=== PATIENT | male | born 1975 | race Caucasian/White ===

== ENCOUNTER 2025-04-23 15:34 | Outpatient (AMB) | payer OTHER, SELFPAY ==
--- NOTE | 2025-04-23 15:46 | A.OFFVIS_ITS ---
Intake Visit Reasons: 6 months follow up Allergies No Known Allergies Allergy (Verified 04/23/25 15:49) Medication List - Last Reconciled 04/23/25 by Em Reyes CNP pantoprazole mg PO propranolol 20 mg PO DAILY 90 days simvastatin 10 mg PO BEDTIME sumatriptan succinate 50 mg PO DAILY PRN HPI Comments Details: 49-year-old man with migraine. He was doing okay. He was getting few headaches a month. He noticed headaches happened more often on the weekend after sleeping in. Sumatriptan as needed helped, but made him feel groggy and he would lay down after taking medication. Sleep was up and down, depending on work schedule. [facility] Medical History (Updated 04/23/25 @ 15:48 by Em Reyes CNP) Migraine Family History (Updated 04/23/25 @ 15:49 by Em Reyes CNP) Mother Gaines gaines disease Review of Systems Const Denies chills, Denies daytime sleepiness, Reports difficulty sleeping, Denies fatigue, Denies fever(s), Denies frequent falls, Reports headache(s), Denies increased appetite, Denies poor appetite, Denies snoring, Denies weakness, Denies weight gain and Denies weight loss Eyes Denies loss of vision ENT Denies vertigo, Denies dizziness and Reports headache(s) Card Denies chest pain at rest, Denies chest pain with activity, Denies syncope, Denies leg edema and Denies palpitations Resp Denies snoring GI Denies constipation, Denies heartburn, Denies diarrhea and Denies nausea Denies urinary frequency, Denies urinary incontinence and Denies urinary urgency Musc Denies abnormal gait, Denies numbness and Denies tingling Skin/Breast Denies dry skin and Denies rash Neuro Denies abnormal gait, Denies vertigo, Denies dizziness, Denies syncope, Denies frequent falls, Reports headache(s), Denies lack of coordination, Denies loss of vision, Denies memory loss, Denies numbness, Denies restless legs, Denies seizure-like activity, Denies tingling, Denies paresthesias, Denies tremor(s) and Denies weakness Psych Denies anxiety, Denies depression, Denies auditory hallucinations, Denies memory loss, Denies visual hallucinations and Denies suicidal ideation Endo Denies fatigue and Denies palpitations Physical Exam Const Other: General Appearance:? normal, in no acute distress. Skin:? no rashes, no significant birthmarks. Heart:? S1, S2 normal, no murmurs. Lungs:? clear anteriorly and posteriorly. Extremities:? no edema. Psych:? alert, oriented, cognitive function intact, cooperative with exam. Neuro Other: Mental Status:?Normal attention, orientation, memory and affect.? Cranial Nerves:?Pupils are equal, round and reactive to light. External occular muscles are intact. Visual osman are full. Face is symmetrical. Facial sensations are normal. Tongue is midline. Palate elevates symmetrically. Shoulder shrugging is normal. Hearing to bedside conversation is normal. Sensory Exam:?....? Coordination:?No ataxia,?no titubation.? Gait Exam: Within normal limits. Cerebellar Signs:?Qlbrfq-na-qyse is okay. Extrapyramidal System:?No tremor, rigidity with normal facial expressions.? Pronator Drift:?Not present.? Involuntary Movements:?No tremors seen.? Speech:?Normal.? Assessment & Plan Assessment & Plan (1) Migraine without aura: Code(s): G43.009 - Migraine without aura, not intractable, without status migrainosus Category: Medical Qualifiers: Status migrainosus presence: without status migrainosus Intractability: not intractable Qualified Code(s): G43.009 - Migraine without aura, not intractable, without status migrainosus Plan: Continue propranolol 20mg 1 tablet daily. Continue sumatriptan 50mg 1 tablet as needed for migraine. May take with 1 Aleve or Excedrin and cup of tea or coffee. Limit use of sumatriptan (and other OTC analgesics) to no more than 2-3x/week. Can consider increasing dose of propranolol in future if headaches become more frequent. Discussed common triggers for migraine, encouraged to maintain regular sleep schedule. Follow up in 6 months or sooner as needed. Plan Meds tried: topiramate, propranolol, sumatriptan, ibuprofen Medications: New sumatriptan succinate take 1 tab at onset of headache; if no relief may repeat 1 tab after at least 2 hrs; PO 10 tabs 5RF 30 days Refilled propranolol 20 mg PO DAILY 90 tabs 1RF 90 days Discontinued sumatriptan succinate Discontinued Reason: Order 50 mg PO DAILY PRN headache Coding Level of Care Code Est Pt Level 4 (73084) Diagnoses Migraine without aura and without status migrainosus, not intractable G43.009 Status migrainosus presence: without status migrainosus Intractability: not intractable
--- OUTSIDE RECORDS SUMMARY | 2025-04-23 18:31 | XMS_ITS | Clinical Summary ---
Author Organization [facility] [address] [place] [address] [place], [place] [address] [address] Phone Care Team Providers Care Patient Care Specialist Name Role Phone Jimy Saba MD Primary Care Provider [phone] Allergies Active Allergy Reactions Criticality Noted Date Comments Pollen Extracts Runny nose 09/08/2011 Medications betamethasone, augmented, (DIPROLENE-AF) 0.05 % cream Apply to affected area three times a day as needed 09/11/2022 Active diclofenac (VOLTAREN) 1 % topical gel 04/28/2023 Active propranoloL (INDERAL) 20 mg tablet Take 1 Tablet by mouth daily. 08/21/2023 Active SUMATRIPTAN SUCCINATE ORAL Take by mouth if needed. Active pantoprazole (PROTONIX) 40 mg EC tablet Take 1 tablet (40 mg total) by mouth 2 (two) times a day before meals. Do not crush, chew, or split. 180 tablet 3 11/09/2024 Active omeprazole (PriLOSEC) [address] capsule Take 1 capsule (40 mg total) by mouth 1 (one) time each day. Do not crush or chew. Active simvastatin (ZOCOR) 10 mg tablet TAKE 1 TABLET BY MOUTH EVERYDAY AT BEDTIME 90 tablet 1 01/26/2025 Active Active Problems Problem Noted Date Diagnosed Date Gastroesophageal reflux disease without esophagi tis 11/09/2024 Irritable bowel syndrome with diarrhea Internal hemorrhoid 02/11/2018 Mixed hyperlipidemia 10/26/2017 Overweight (BMI 25.0-29.9) 10/26/2017 Carpal tunnel syndrome 03/06/2016 Eczema 12/18/2011 Migraine 12/18/2011 Overview (04/06/2024): Follows with neurology (marco) on yearly basis. Immunizations Immunization Administration Dates Next Due Influenza, Unspecified 02/20/2017,02/06/2016 Tdap Tetanus diptheria acell ular pertussis (Boostrix; Adacel) 7yo and older 07/31/2014 Surgical History Surgery Date Site/Laterality Comments COLONOSCOPY 11/19/2017 PROCEDURE: HISTORICAL COLONOSCOPY; COMMENT: hemorrhoids and tics; repeat in 10 yrs Medical History Medical History Date Comments Family history of cardiovascular disease DX:Family history of cardiovascular disease Hyperlipidemia DX:Hyperlipidemi a Esophageal reflux DX:Esophageal reflux Family History Medical History Relation Name Comments Other: skin cancer Grandparent grandmoth er; R eyebrow Uterine cancer Mother Relation Name Status Comments Father Grandparent Maternal Grandfather Maternal Grandmother Mother CVA Paternal Grandfather Paternal Grandmother Social History Tobacco Use Types Packs/Day Years Used Date Smoking Tobacco: Former Cigarettes 0 Q uit: 06/23/2011 Smokeless Tobacco: Never Comments:Occasional cigar Alcohol Use Standard Drinks/Week Comments Yes 0 (1 standard drink = 0.6 oz pur e alcohol) occasional Housing Instability Answer Date Recorde d Are you worried that in the next 2 months you may not have stable housing? No 05/10/2024 Food Access & Nutrition Answer Date Rec orded Do you have access to a vari ety of food including fruits and vegetables? Yes 05/10/2024 Access to Healthcare Answer Date Record ed Within the last 3 months, ho w many times did you visit the emergency department for your medical care? 0 05/10/2024 Health Literacy Answer Date Recorded How often do you need to hav e someone help you when you read instructions, pamphlets, or other written material from your doctor or pharmacy? Never 05/10/2024 Caregiver: How often do you need to have someone help you when you read instructions, pamphlets, or other written material from your doctor or pharmacy? Not on file 05/10/2024 Financial Risk Answer Date Recorded How hard is it for you to pa y for the very basics like food, housing, medical care, and air conditioning / heating? Patient declined 05/10/2024 Transportation Answer Date Recorded Has the lack of transportati on kept you from meetings, work, or from getting things needed for daily living? No Has the lack of transportati on kept you from medical appointments or from getting medications? No 05/10/2024 Social Isolation Answer Date Recorded How often do you feel lonely or isolated from those around you? Sometimes 05/10/2024 Food Risk Answer Date Recorded Within the past 12 months we worried whether our food would run out before we got money to buy more. Never true 05/10/2024 Within the past 12 months th e food we bought just didn't last and we didn't have money to get more. Never true 05/10/2024 Dependent Care Answer Date Recorded Do you need help finding or paying for care for your loved ones. For example, children's lunchroom supervisor or elderly care for an older adult? No 05/10/2024 Education Answer Date Recorded Do you think completing more education or training, like finishing a GED, going to college, or learning a trade, would be helpful for you? Patient declined 05/10/2024 Employment and Income Answer Date Recor ded During the last four weeks, have you been actively looking for work? No 05/10/2024 Living Situation Answer Date Recorded What is your living situation? Unrecognized valu e 05/10/2024 Sex and Gender Information Value Date Recorded Sex Assigned at Not on file Legal Sex Male 5:34 PM EST Gender Identity Not on file Sexual Orientation Not on file Obstetrics History Last Filed Vital Signs Vital Sign Reading Time Taken Comments Blood Pressure 108/78 11/10/2024 4:22 PM EDT Pulse 75 11/10/2024 4:22 PM EDT Temperature 36.1 C (96.9 F) 11/10/2024 4:22 PM EDT Respiratory Rate 16 11/10/2024 4:22 PM EDT Oxygen Saturation 96% 11/10/2024 4:22 PM EDT Inhaled Oxygen Concentration - - Weight 90.7 kg (200 lb) 11/10/2024 4:22 PM EDT Height 180.3 cm (5' 11 ) 11/10/2024 4:22 PM EDT Body Mass Index 27.89 11/10/2024 4:22 PM EDT Plan of Treatment Upcoming Encounters Date Type Department Care Team (Late st Contact Info) Description 07/26/2025 4:00 PM EST Office Visit Adult Medicine [facility] [address] [place], [place] [phone] Jimy Saba MD [address] [place] [address] Health Maintenance Due Date Last Done Comments Hepatitis B Vaccines (1 of 3 - 19+ 3-dose series) 1995 Depression Screening 05/24/2024 05/10/2024 DTaP,Tdap,and Td Vaccines (2 - Td or Tdap) 07/31/2024 07/31/2014 COVID-19 Vaccine (3 - season) 2025 09/29/2020, 09/06/2020 Influenza Vaccine (#1) 2025 , 04/27/2020, 03/29/2019, Additional history exists Social Influencers of Health Screening 05/10/2025 05/10/2024 Colorectal Cancer Screening: Colonoscopy 11/20/2027 11/19/2017 Cholesterol Screening (Lipid Panel) 11/08/2028 11/09/2023, 11/09/2023 RSV Immunization Adult Patients (1 - 1-dose 75+ series) 2051 HIV Screening Completed 01/07/2022 Hepatitis C Screening Completed 01/07/2022 HIB Vaccines Aged Out No longer eligi ble based on patient's age to complete this topic HPV Vaccines Aged Out No longer eligi ble based on patient's age to complete this topic Hepatitis A Vaccines Aged Out No long er eligible based on patient's age to complete this topic IPV Vaccines Aged Out No longer eligi ble based on patient's age to complete this topic MMR Vaccines Aged Out No longer eligi ble based on patient's age to complete this topic Meningococcal ACWY Vaccine Aged Out N o longer eligible based on patient's age to complete this topic Meningococcal B Vaccine Aged Out No l onger eligible based on patient's age to complete this topic Pneumococcal Vaccine: Pediatrics (0 to 5 Years) and At-Risk Patients (6 to 49 Years) Aged Out No longer eligible based on patient's age to complete this topic RSV Immunization Patients Under 20 months Aged Out No longer eligible based on patient's age to complete this topic Varicella Vaccines Aged Out No longer eligible based on patient's age to complete this topic Procedures Procedure Name Priority Date/Time Associated Diagnosis Comments LIPID PANEL Routine 11/09/2023 HEPATITIS C SCREENING Routine 01/07/2022 HIV SCREENING Routine 01/07/2022 from Last 3 Months or Most Recently Relevant to Health Maintenance Results * (ABNORMAL) Lipid panel (11/09/2023) LDL/HDL Ratio 4 0 - 4 Triglycerides 153(A) 0 - 150 mg/dL Cholesterol 166 0 - 200 mg/dL HDL 39(A) >=40 mg/dL LDL Cholesterol 97 0 - 100 mg/dL Blood Venous blood specimen / Unknown [facility] Provider LAB BLOOD ORDERABLES Kallie l Result * HIV Screening (01/07/2022) HIV Screening abstracted [facility] Provider HEALTH MAINTENANCE Final Result * Hepatitis C Screening (01/07/2022) Pathologist [facility] Hepatitis C Screening abstracted Historical Provider HEALTH MAINTENANCE Final Result from Last 3 Months or Most Recently Relevant to Health Maintenance Insurance [place] [id number] [facility] Care Teams Patient Care Specialist Relationship Specialty Start Date End Date Jimy Saba MD PCP - General Internal Medicine 07/24/11
--- OUTSIDE RECORDS SUMMARY | 2025-04-23 18:31 | XMS_ITS | Data Portability ---
Author Organization [place] - [facility], Allergy Address [address] [address] Care Team Providers Care Paperhanger Supervisor Name Role Phone ALINA GERONIMO Referring Provider Assessment Encounter Date Assessment Date Assessment LastModified by Organization Details LastModified Time 06/30/2024 06/30/2024 Likely odontogenic sinusitis from the fistula after dental extraction involving the right maxillary sinus in May. Given his notation of foul smell and recently closing fistula recommend a 10-day course of Augmentin as well as use of nasal saline to thin secretions and any vegetative matter that may have entered the sinus. [email or web address] Not available 06/30/2024 14:00:07 Plan of Treatment Reminders Order Date Submit Date Provider Last Modified By Organization Details Last Modified Time Details Appointments None recorded. Lab None recorded. Referral None recorded. Procedures None recorded. Surgeries None recorded. Imaging None recorded. Medication Orders amoxicillin 875 mg-potassiu m clavulanate 125 mg tablet 2024 025 [facility] #[id number], [address] [facility] [place], [address], 5 13:58:34 Patient TargetsNo targets recorded. Patient InstructionsNo instructions recorded. Reason for Referral None Reported. 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, unspecifie d ear; Note: Date Diagnosed: 10/05/2019 3:42 PM (H83.09) Not Available [facility] 4 02:18:42 Dizziness and giddiness 312366747 Active 2019 Dizziness and giddiness; Note: Date Diagnosed: 10/23/2019 10:54 AM (R42) Not Available [facility] 4 02:19:09 Sensorine ural hearing loss 98810676 Active 2019 Sensorineu ral hearing loss, unilateral , left ear, with unrestrict ed hearing on the contralate ral side; Note: Date Diagnosed: 10/23/2019 10:54 AM (H90.42) Not Available [facility] 4 02:18:28 Bleeding from nose 254243706 Active 2023 Epistaxis; Note: Date Diagnosed: 07/23/2023 4:21 PM (R04.0) Not Available [facility] hospital 4 02:18:54 Acute maxillary sinusitis 16663130 Active 2024 NEIL SEGUNDO MD [address] [place] [address], [facility] [place], [phone] , [facility] 5 13:57:52 Problem Notes None recorded. Medical Equipment None Reported. Allergies No known drug allergies Medications Name Sig Start Date Stop Date Status Note LastModified by Organization Details LastModified Time cyclobenz aprine 10 mg tablet TAKE 1 TABLET BY MOUTH THREE TIMES A DAY FOR 30 DAYS active Not Available Not Available No t Available prednison e 20 mg tablet active Medicati on ID: [id number] D uration Value: 10 Brand Name: predniso ne Send Method: E-Prescr ibed Sub s Allowed: subs OK Medic ationGen ericName : predniso ne Not Available Not Available Not Available simvastat in 10 mg tablet TAKE 1 TABLET BY MOUTH EVERYDAY AT BEDTIME active Not Available Not Available No t Available sumatript an 50 mg tablet TAKE 1 TABLET BY MOUTH EVERY DAY NEEDED FOR HEADACHE ONCE A DAY 30 DAYS active Not Available Not Available No t Available meclizine 25 mg tablet 10/04 completed Medicati on ID: [id number] D uration Value: 20 Brand Name: meclizin e Send Method: E-Prescr ibed Sub s Allowed: subs OK Speci al Instruct ion: TAKE 1 TABLET BY MOUTH 3 TIMES A DAY BEFORE MEALS Me dication GenericN bonnie: meclizin e Not Available Not Available Not Available pantopraz ole 40 mg tablet,de layed release TAKE 1 TABLET BY MOUTH TWICE DAILY ON EMPTY STOMACH, WAIT 30 MIN, & THEN EAT TO ACTIVATE MEDICATI ON. active Not Available Not Available No t Available omeprazol e 20 mg capsule,d elayed release 10/04 completed Medicati on ID: [id number] D uration Value: 90 Brand Name: omeprazo le Send Method: E-Prescr ibed Sub s Allowed: subs OK Speci al Instruct ion: TAKE 1 CAPSULE BY MOUTH EVERY DAY Medi cationGe nericNam e: omeprazo le Not Available Not Available Not Available propranol ol 20 mg tablet TAKE 1 TABLET BY MOUTH WITH BREAKFAS T active Not Available Not Available No t Available ondansetr on 4 mg disintegr ating tablet 10/04 completed Medicati on ID: [id number] D uration Value: 17 Brand Name: onjaxon borjas Send Method: E-Prescr ibed Sub s Allowed: subs OK Medic ationGen ericName : oncarlos enriqueet suad Not Available Not Available Not Available naproxen 500 mg tablet TAKE 1 TABLET BY MOUTH TWICE A DAY active Not Available Not Available No t Available amoxicill in 875 mg-potass ium clavulana te 125 mg tablet TAKE 1 TABLET BY MOUTH EVERY 12 HOURS FOR 10 DAYS, FOR SINUSITI S. active Not Available Not Available No t Available topiramat e 50 mg tablet 10/04 completed Medicati on ID: [id number] D uration Value: 90 Brand Name: topirama te Send Method: E-Prescr ibed Sub s Allowed: subs OK Speci al Instruct ion: TAKE 1 TABLET BY MOUTH EVERYDAY AT BEDTIME Medicati onGeneri cName: topirama te Not Available Not Available Not Available Vitals Date Recorded Body height Body mass index (BMI) Body weight Provider Name and Address Organization Details Last Updated DateTime 06/30/2024 180.34 cm 27.9 kg/m2 28413.47 g [place] - [facility] 06/30/2024 13:44:26 Social History None recorded. Functional Status None recorded. Mental Status None recorded. Family History Nothing Reported. Medical History No medical history recorded. Past Encounters Encounter ID Performer Location Encounter Start Date Encounter Closed Date Diagnosis/Indication Diagnosis SNOMED-CT Code Diagnosis ICD10 Code Diagnosis IMO Codes Diagnosis Note [id number] NEIL SEGUNOD MD [facility] [address] [address] 06/30/2024 13:36:11 06/30/2024 13:59:54 Acute maxillary sinusitis 38796939 J01.00 Health Concerns Section Related Observation LastModified by Organization Detai ls LastModified Time None Recorded Concern Status LastModified by Organization Details LastModified Time None Recorded Advance Directives Directive None Recorded Payers Insurance Date Sequence Insurance Name Policy Number Policy Vazquez Covered Member ID Vazquez Member ID Guarantor Name 08/24/2024 1 [facility] [id number] Harshil Feldman [id number] Harshil Feldman Notes Date Note Type Note Provider Name and Address Organization Details Recorded Time 06/30/2024 text/html ROS as noted in the HPI sinusearly May right max tooth extraction in [place], [place] with perf sinus - oral surgeon feels it is closing well.tx with 10 days of abx amox also an oral rinse 2 weeks later developed foul rotten smell in nose - 09/28/2019 [place] brain with and [place] [facility] in [facility] paranasal sinuses. PV 07/23/23 Kristyn left epistaxis, conservative measures NEIL SEGUNDO MD [address] [place] [address],[address], [address], [facility] - [facility] 06/30/2024 14:00:43
== END 2025-04-23 16:04 | disposition home or self-care (01) ==
PROVIDERS: PCP Internal Medicine; Visit Provider Registered Nurse
DX: G43.009 Migraine without aura, not intractable, without status migrainosus (principal)
CPT/HCPCS: 99214